=== PATIENT | female | born 1955 | race Caucasian/White ===

== ENCOUNTER 2016-09-20 09:17 | Inpatient (IN) ==
[2016-09-20] MEDS ORDERED: SODIUM CHLORIDE 0.9% 1,000 ML IV STA (09:45)
[2016-09-20] MEDS ORDERED: LEVOFLOXACIN INJ 500 MG in PREMIX 1 EACH IV STA (09:47)
[2016-09-20] MEDS ORDERED: HYDROmorphone 2 MG/1 ML VIAL IV STA (09:47)
[2016-09-20] MEDS ORDERED: HYDROmorphone 2 MG/1 ML VIAL ONE (09:50)
[2016-09-20] MEDS ORDERED: LEVOFLOXACIN INJ 150 ML IV ONE (09:51)
[2016-09-20] MEDS ORDERED: ONDANSETRON ODT 4 MG TABLET PO ONE (09:51)
[2016-09-20 09:53] LABS: Basophils % 0.2 % (0.0-0.8); Hematocrit 36.5 VOL% (35.7-47.0); Hemoglobin 12.1 GM/DL (12.0-16.0); Immature Granulocytes % 0.8 %; Immature Granulocytes Absolute 0.08 #; Lymphocytes # 0.8 10*3/uL (1.4-4.0); Mean Corpuscular HGB Conc 33.2 GM/DL (32-36); Mean Corpuscular Hemoglobin 30 PG (27-34); Mean Corpuscular Volume 91.3 FL (87-102); Mean Platelet Volume 11.2 FL (9.6-12.0); Monocytes # 0.8 10*3/uL (0.11-0.8); Monocytes % 8.2 % (1.7-12.7); Neutrophils # 8.2 10*3/uL (1.4-7.4); Neutrophils % 82.8 % (38.7-73.9); Platelet Count 143 T/CUMM (130-400); Red Cell Distribution Width 13.5 % (9.3-17.3); White Blood Count 9.9 T/CUMM (4-12)
[2016-09-20] MEDS ORDERED: LEVOFLOXACIN INJ 750 MG in PREMIX 1 EACH IV STA (09:59)
[2016-09-20] MEDS: ONDANSETRON ODT 4 MG TABLET PO PRN ×2 (10:03→17:23)
[2016-09-20 10:06] LABS: Apearance,Urine CLOUDY (Clear); Bacteria,Urine Moderate /HPF (Few); Bilirubin,Urine Negative (Negative); Blood, Urine Moderate mg/dL (Negative); Glucose,Urine (UA) Negative (Negative); Ketones,Urine Negative (Negative); Mucus,Urine Occasional /LPF (Occasional); Nitrite,Urine Positive (Negative); Protein,Urine 100 MG/DL; RBC,Urine 42 /HPF (0-4); Squamous Epithelial Cell,Urine Occasional /HPF (0-10); Urine Specific Gravity 1.021 (1.001-1.035); Urine Urobilinogen < 2.0 EU/DL (0.2-1.0); WBC,Urine 668 /HPF (0-6)
[2016-09-20 10:08] LABS: Urine Color Dark Yellow (Yellow)
[2016-09-20 10:17] LABS: Band Neutrophils 9 % (0-10); Hypochromasia 1+; Lymphocytes 10 % (20-55); Microcytosis Slight; Segmented Neutrophils 74 % (50-85); Total Cells Counted 100
[2016-09-20 10:18] LABS: Platelet Estimate Adequate
[2016-09-20 10:21] LABS: Albumin 3.2 G/DL (3.4-5.0); Bilirubin,Total 0.7 MG/DL (0.2-1.0); Calcium 8.5 MG/DL (8.5-10.1); Osmolality,Calculated 283.8 MOS/KG (273-304); Potassium 3.9 MMOL/L (3.5-5.1); Total Protein 6.5 G/DL (6.4-8.3)
--- NOTE | 2016-09-20 12:03 | CT Report ---
History: Urinary tract infection, lower abdominal pain and back pain. Nausea and vomiting. Dysuria Date: 09/20/2016 Study: CT abdomen and pelvis without contrast Comparison exam: No previous Technique: Spiral CT sections were obtained from the lung bases to the pubic symphysis without contrast. The CT exam was performed using one or more of the following dose reduction techniques: Automated exposure control, adjustment of the mA and/or kV according to patient size, or use of iterative reconstruction technique. CT abdomen: The partially visualized lung bases are clear except for some minor dependent atelectasis. There is no gross pleural or pericardial effusion. There is no evidence of pneumoperitoneum. There is mild diffuse fatty infiltration of liver. The gallbladder is surgically absent. There is a small hiatal hernia. The liver, pancreas, bile ducts, and adrenal glands are unremarkable in CT appearance. The spleen is unremarkable except for a small nonspecific 11 mm low-density superiorly which may represent a hepatic cyst. There is mild perinephric and proximal periureteral fat stranding on the right. There is no hydronephrosis or radiopaque ureteral stone. There is no gross renal mass on this noncontrast study. There are at least 2 calcifications measuring 2 mm and less in the right kidney which could represent nonobstructing renal stones. There is a 15 mm nonobstructing renal stone in a lower pole of left kidney. There is no aneurysm of the moderately calcified abdominal aorta. There is no evidence of bowel obstruction. The appendix is normal. Multiple small areas of incisional hernia formation are noted superior to the umbilicus, scattered over 18 cm. These contain fat without any entrapped bowel. There is no lymphadenopathy. There is prominent degenerative disc disease at L4-L5. CT pelvis: There is no pelvic mass or abnormal pelvic fluid collection. The uterus is surgically absent. Impression: Perinephric and proximal periureteral fat stranding on the right is present. This could be a secondary sign of an upper urinary tract infection. There is no hydronephrosis or radiopaque ureteral stone. There are nonobstructing renal stones bilaterally. Other nonacute findings discussed above PROCEDURE INTERPRETED AT [facility] DEPARTMENT OF RADIOLOGY Final Report Signed by: Dr. Belkis Hastings
--- NOTE | 2016-09-20 12:29 | Emergency Department Note ---
Jax Moore Brittany, am scribing for, and in the presence of, Jama Bellamy MD 09:47. Josesito Moore Doug C, MD, personally performed the services described in this documentation, ascribed by Chloe Camara in my presence, and it is both accurate and complete . Arrival - Arrival Chief Complaint: Urogenital - Female Stated Complaint: Kidney Infection ED Nursing Triage Note: C/o urinary frequency and pain with urination-onset 4 days ago. +chills and body aches. Mode of Arrival: Wheelchair Limitations: No Limitations Source: Patient, RN Notes Reviewed - History of Present Illness HPI Narrative: Patient is a 60-year-old white female presents emergency room complaining of lower abdominal pain and back pain for the last 3 days. Patient has had a subjective fever with chills since this started and she is also had nausea, vomiting and episodes of sweating. Patient states she is having dysuria and frequency and noticed her urine has been quite dark. She does have a past medical history of kidney stones. She denies any back injury or radicular symptoms. Onset (ago): day(s) (4) Consistency: constant Severity: moderate Severity scale (1-10): 6 Quality: aching, burning Date of Last Menstrual Period: hysterectomy Allergies/Adverse Reactions: Allergies Allergy/AdvReac Type Severity Reaction Status Date / Time Penicillins AdvReac Unknown/Unable Verified 09/20/16 09:24 to obtain Home Medications: Home Medications Medication Instructions Recorded Confirmed Type Citalopram [CeleXA] 40 mg PO DAILY 09/20/16 09/20/16 History Hydrocodone/Acetaminophen 1 each PO Q6H PRN 09/20/16 09/20/16 History [Hydrocodon-Acetaminophn 10-325] LORazepam TAB [Ativan Tab] 1 mg PO BID PRN 09/20/16 09/20/16 History Losartan Potassium 50 mg PO DAILY 09/20/16 09/20/16 History Meloxicam 15 mg PO DAILY 09/20/16 09/20/16 History Metoprolol Succinate 50 mg PO DAILY 09/20/16 09/20/16 History Temazepam 30 mg PO BEDTIME 09/20/16 09/20/16 History levETIRAcetam TAB [Keppra Tab] 500 mg PO BID 09/20/16 09/20/16 History Review of System - Review of System 12 point system: reviewed and no additional remarkable complaints except as stated - Review of System Constitutional: Present: as per HPI, chills, fever (subjective) Eyes: Absent: vision change Head/Ears/Nose/Throat: Absent: nasal drainage, sore throat Respiratory: Absent: respiratory distress Cardiovascular: Absent: chest pain, palpitations Gastrointestinal: Present: as per HPI, abdominal pain. Absent: nausea, vomiting , diarrhea, constipation Genitourinary female: Present: as per HPI, dysuria, frequency, other (dark colored urine) Musculoskeletal: Present: as per HPI, back pain. Absent: arm pain, leg pain, neck pain Skin: Absent: rash Neurological: Absent: headache, confusion Psychiatric: Absent: anxiety, depression Hematological/Lymphatic: Absent: easy bleeding, easy bruising Medical,Surgical,& Family Hx - Medical History Cardio: History of: Hypertension, [place], Valvular Heart Disease Psychological: History of: Depression Neurology: History of: Seizures, TIA Gastrointestinal: History of: GI Problems - Surgical History Abdominal Surgeries: Surgical HX of: Abdominal Surgery (removal of intestinal tumor) Reproductive Surgeries: Surgical HX of;: Breast Surgery (Breast Biopsy), Hysterectomy - Family History Family History: Reports;: Family Heart Disease - Social History Smoking Status: Never smoker Frequency of Alcohol Use: None Type of Drug Use: None Exam Vital Signs: Vital Signs Temperature 98.9 F 09/20/16 09:32 Pulse Rate 78 09/20/16 11:15 Respiratory Rate 18 09/20/16 11:15 Blood Pressure 127/64 09/20/16 11:15 O2 Sat by Pulse Oximetry 93 L 09/20/16 11:15 - General General appearance: alert, in distress (appears uncomfortable secondary to pain) - Head Head exam: Present: normocephalic - Eye Eye exam: Present: PERRL, EOMI - ENT ENT exam: Present: mucous membranes dry. Absent: normal oropharynx, mucous membranes moist - Neck Neck exam: Present: normal inspection, full ROM - Chest Chest inspection: Present: normal inspection - Respiratory Respiratory exam: Present: normal lung sounds bilaterally - Cardiovascular Cardiovascular exam: Present: normal rhythm, tachycardia, murmur (2/6 systolic ejection murmur at the left base). Absent: regular rate, normal heart sounds - Abdominal Exam Abdominal exam: Present: soft, tenderness (diffuse abdominal tenderness to palpation), normal bowel sounds - Extremities Exam Extremities exam: Present: normal inspection - Back Exam Back exam: Present: normal inspection - Neurological Exam Neurological exam: Present: alert, oriented X3, CN II-XII intact. Absent: motor sensory deficit - Psychiatric Psychiatric exam: Present: normal affect - Skin Skin exam: Present: warm, dry Course Course Narrative: Patient's clinical presentation, laboratory and radiographic findings were discussed with Tyra who is covering the hospitalist service. Patient be seen in the emergency room and evaluated for admission. Results - Labs CBC & BMP: 09/20/16 09:45 09/20/16 09:45 Lab Results: I have reviewed the patients labs Labs: Laboratory Tests 09/20/16 09:45 WBC 9.9 RBC 4.00 Hgb 12.1 Hct 36.5 MCV 91.3 MCH 30 MCHC 33.2 RDW 13.5 Plt Count 143 MPV 11.2 Neut % (Auto) 82.8 H Lymph % (Auto) 8.0 L [place] % (Auto) 8.2 Eos % (Auto) 0.0 Baso % (Auto) 0.2 Neut # (Auto) 8.2 H Lymph # (Auto) 0.8 L [place] # (Auto) 0.8 Eos # (Auto) 0.0 Baso # (Auto) 0.0 Immature Gran % 0.8 Nucleated RBC % 0.0 Immature Gran # 0.08 Nucleated RBCs # 0.00 Laboratory Tests 09/20/16 09:45 Urine Color Dark yellow Urine Appearance Cloudy Urine pH 5.0 Ur Specific [place] 1.021 Urine Protein 100 Urine Glucose (UA) Negative Urine Ketones Negative Urine Blood Moderate Urine Nitrate Positive H Urine Bilirubin Negative Urine Urobilinogen < 2.0 H Urine Leukocytes Large H Urine RBC 42 Urine WBC 668 Urine WBC Clumps Moderate Ur Squamous Epith Cells Occasional Urine Bacteria Moderate Urine Mucus Occasional Ur Culture Indicated? Ordered separately Laboratory Tests 09/20/16 09:45 Total Counted 100 Segmented Neutrophils 74 Band Neutrophils 9 Lymphocytes 10 L Monocytes 7 Platelet Estimate Adequate Hypochromasia 1+ Microcytosis Slight Laboratory Tests 09/20/16 09:45 Sodium 137 Potassium 3.9 Chloride 103 Carbon Dioxide 21 Anion Gap 16.9 H BUN 27 H Creatinine 2.00 H GFR Calculation 33 BUN/Creatinine Ratio 13.00 Glucose 211 H Calculated Osmolality 283.8 Calcium 8.5 Total Bilirubin 0.70 AST 15 ALT 19 Alkaline Phosphatase 79 Total Protein 6.5 Albumin 3.2 L Globulin 3.3 Albumin/Globulin Ratio 0.9 L - Diagnostic Findings Procedure: CT Abdomen and Pelvis: report reviewed by me (Perinephric and proximal periureteral fat stranding on the right is present. This could be a secondary sign of an upper urinary tract infection. There is no hydronephrosis or radiopaque ureteral stone. There are nonobstructing renal stones bilaterally. ) Disposition Clinical Impression: Pyelonephritis, acute Case discussed with: patient, patient's family Disposition: Still a Patient Condition: Stable Time of Disposition: 12:28
--- NOTE | 2016-09-20 12:51 | Hospitalist History & Physical ---
Assessment and Plan - Time spent with patient Time spent with patient: Greater than 30 minutes (1) Pyelonephritis, acute Status: Acute Assessment and plan: Patient presents with acute right pyelonephritis. She has been cultured appropriately and will begin empiric IV antibiotics while awaiting cultures ID and sensitivity. Will provide IV fluids, IV analgesics and antiemetics. Further workup will be performed based on patient's clinical response and results of the pending database. Current Visit: Yes (2) Seizures Status: Chronic Assessment and plan: Patient has a history of seizures which have been controlled on Keppra which we will continue at this time. Current Visit: Yes (3) Cerebrovascular accident Status: Chronic Assessment and plan: Patient has a history of remote CVA with no residual. Current Visit: Yes (4) Congestive heart failure Status: Chronic Assessment and plan: Patient gives a history of congestive heart failure. LV function is unknown at this time. She appears to be well compensated at this time will continue her current medical regimen Current Visit: Yes (5) Hypertension Status: Chronic Assessment and plan: Patient has history of chronic essential hypertension. Blood pressures currently stable. We will continue her current medical regimen. Current Visit: Yes Qualifiers: Hypertension type: essential hypertension Qualified Code(s): I10 - Essential (primary) hypertension (6) Renal failure Status: Acute Assessment and plan: Patient has a creatinine of 2.0. I am unclear as to the chronicity of this. Will hydrate overnight and avoiding nephrotoxic agents. We will follow-up renal function and electrolytes in the a.m. Current Visit: Yes History of Present Illness Chief complaint: Fever, nausea, vomiting, right back pain History of present illness: Ms. Rodriguez is a 60 year old white female who noted that early in the week she had dysuria. She drank lemon juice and attempt to resolve this. Later in the week she began having generalized body aches right flank pain with associated nausea and vomiting as well as nonbloody watery diarrhea. She began having fevers and sweats. states that yesterday she was in the bed all day had little oral intake. Today they brought her to the emergency room where she was noted to have evidence of pyelonephritis clinically and radiographically. She denies any chest pain, shortness of breath, cough, sputum production, melena , hematochezia, hematemesis, focal motor weakness or paresthesias, recent seizure activity. Her primary care provider is Dr. Chavo Marquez. Home Medications Medication Instructions Recorded Confirmed Type Citalopram [CeleXA] 40 mg PO DAILY 09/20/16 09/20/16 History Hydrocodone/Acetaminophen 1 each PO Q6H PRN 09/20/16 09/20/16 History [Hydrocodon-Acetaminophn 10-325] LORazepam TAB [Ativan Tab] 1 mg PO BID PRN 09/20/16 09/20/16 History Losartan Potassium 50 mg PO DAILY 09/20/16 09/20/16 History Meloxicam 15 mg PO DAILY 09/20/16 09/20/16 History Metoprolol Succinate 50 mg PO DAILY 09/20/16 09/20/16 History Temazepam 30 mg PO BEDTIME 09/20/16 09/20/16 History levETIRAcetam TAB [Keppra Tab] 500 mg PO BID 09/20/16 09/20/16 History Allergies Allergy/AdvReac Type Severity Reaction Status Date / Time Penicillins AdvReac Unknown/Unable Verified 09/20/16 09:24 to obtain Medical,Surgical,& Family Hx - Medical History Cardio: History of: Hypertension, [place], Valvular Heart Disease Psychological: History of: Depression Neurology: History of: Seizures, TIA Gastrointestinal: History of: GI Problems - Surgical History Abdominal Surgeries: Surgical HX of: Abdominal Surgery (removal of intestinal tumor) Reproductive Surgeries: Surgical HX of;: Breast Surgery (Breast Biopsy), Hysterectomy - Family History Family History: Reports;: Family Heart Disease - Social History Smoking Status: Never smoker Frequency of Alcohol Use: None Type of Drug Use: None Marital Status: Lives With:: Spouse Functional capacity: independent ambulation 12 point system: reviewed and no additional remarkable complaints except as stated Exam - Constitutional Vitals: Period Temp Pulse Resp BP Sys/Nj Pulse Ox Last 24 Hr 98.9 F-98.9 F 70-92 16-20 108-155/58-83 92-97 General appearance: mild distress - Head Head exam: Present: normocephalic, atraumatic - Eye Eye exam: Present: EOMI. Absent: scleral icterus Pupils: Present: DOUG - ENT ENT exam: Present: normal oropharynx - Neck Neck exam: Absent: lymphadenopathy, meningismus, tenderness, thyromegaly - Respiratory Respiratory exam: Present: clear to auscultation bilaterally. Absent: rales, rhonchi, wheezes - Cardiovascular Cardiovascular exam: Present: regular rate and rhythm. Absent: gallop, JVD, systolic murmur, tachycardia - GI/Abdominal GI/Abdominal exam: Present: normal bowel sounds, soft. Absent: distended, mass , tenderness, rebound - Extremities Exam Extremities exam: Absent: calf tenderness, edema - Back Exam Back exam: Present: CVA tenderness (R). Absent: vertebral tenderness - Neurological Exam Neurological exam: Present: alert, oriented X3, CN II-XII intact. Absent: motor sensory deficit - Psychiatric Psychiatric exam: Present: normal affect, normal mood, anxious. Absent: agitated - Skin Skin exam: Present: warm, diaphoretic. Absent: petechiae, rash Results - Labs CBC & BMP: 09/20/16 09:45 09/20/16 09:45 Lab Results: I have reviewed the past 24 hour labs - Diagnostic Findings Procedure: CT Abdomen and Pelvis: report reviewed by me
[2016-09-20] MEDS ORDERED: SODIUM CHLORIDE 0.9% 1,000 ML IV ONE (12:55)
[2016-09-20] MEDS ORDERED: DEXTROSE 50% 25 GM/50 ML VIAL IV PRN (13:05)
[2016-09-20] MEDS ORDERED: GLUCAGON 1 MG VIAL IM PRN (13:05)
[2016-09-20] MEDS ORDERED: ONDANSETRON 4 MG/2 ML VIAL IV PRN (13:29)
[2016-09-20] MEDS ORDERED: ENOXAPARIN 30 MG/0.3 ML SYRINGE SUBCUT SCH (13:29)
[2016-09-20] MEDS: ENOXAPARIN 40 MG/0.4 ML SYRINGE SUBCUT SCH (14:17)
[2016-09-20] MEDS: MEROPENEM 1,000 MG in SODIUM CHLORIDE 0.9% 100 ML IV SCH ×2 (14:17→15:27)
[2016-09-20] MEDS: MORPHINE 2 MG/1 ML SYRINGE IV PRN ×2 (14:17→22:48)
[2016-09-20] MEDS: SODIUM CHLORIDE 0.9% 1,000 ML IV SCH ×3 (15:28→23:48)
[2016-09-20] MEDS: ACETAMINOPHEN 325 MG TABLET PO PRN ×2 (15:34→22:52)
[2016-09-20] MEDS: LORazepam 1 MG TABLET PO PRN (15:34)
[2016-09-20] MEDS: INSULIN LISPRO 100 UNIT/ML SUBCUT SCH ×2 (17:06→20:11)
[2016-09-20] MEDS: levETIRAcetam 500 MG TABLET PO SCH (20:11)
[2016-09-20] MEDS: PANTOPRAZOLE 40 MG TABLET PO SCH (21:20)
[2016-09-20] MEDS ORDERED: SODIUM CHLORIDE 0.9% 1,000 ML IV SCH (23:45)
[2016-09-21] MEDS: MEROPENEM 1,000 MG in SODIUM CHLORIDE 0.9% 100 ML IV SCH ×2 (01:18→13:24)
[2016-09-21] MEDS: ACETAMINOPHEN 325 MG TABLET PO PRN ×2 (05:28→19:08)
[2016-09-21 07:16] LABS: Basophils % 0.2 % (0.0-0.8); Immature Granulocytes % 0.7 %; Immature Granulocytes Absolute 0.04 #; Lymphocytes # 0.6 10*3/uL (1.4-4.0); Lymphocytes % 10.1 % (21.3-54.2); Mean Corpuscular HGB Conc 32.3 GM/DL (32-36); Mean Corpuscular Hemoglobin 30 PG (27-34); Mean Corpuscular Volume 93.1 FL (87-102); Mean Platelet Volume 11.7 FL (9.6-12.0); Monocytes # 0.5 10*3/uL (0.11-0.8); Monocytes % 9.6 % (1.7-12.7); Neutrophils # 4.5 10*3/uL (1.4-7.4); Neutrophils % 79.4 % (38.7-73.9); Platelet Count 122 T/CUMM (130-400); Red Blood Count 3.33 MC/CUMM (3.8-5.5); Red Cell Distribution Width 13.9 % (9.3-17.3); White Blood Count 5.6 T/CUMM (4-12)
[2016-09-21 07:36] LABS: Hypochromasia Slight; Platelet Estimate Adequate
[2016-09-21 07:42] LABS: Calcium 7.7 MG/DL (8.5-10.1); Osmolality,Calculated 278.8 MOS/KG (273-304); Potassium 3.8 MMOL/L (3.5-5.1)
--- NOTE | 2016-09-21 08:06 | Hospitalist Progress Note ---
Assessment and Plan - Time spent with patient Time spent with patient: Less than 30 minutes (1) Pyelonephritis, acute Status: Acute Assessment and plan: Patient presents with acute right pyelonephritis. She has been cultured appropriately and will begin empiric IV antibiotics while awaiting cultures ID and sensitivity. Will provide IV fluids, IV analgesics and antiemetics. Further workup will be performed based on patient's clinical response and results of the pending database. 09/21/16: Continuing IV Merrem for her acute right pyelonephritis. Blood cultures are positive for gram-negative rods. Will await further ID and sensitivities before making any further adjustments. Will otherwise continue IV fluids with IV analgesics and antiemetics as needed. Current Visit: Yes (2) Seizures Status: Chronic Assessment and plan: Patient has a history of seizures which have been controlled on Keppra which we will continue at this time. Current Visit: Yes (3) Cerebrovascular accident Status: Chronic Assessment and plan: Patient has a history of remote CVA with no residual. Current Visit: Yes (4) Congestive heart failure Status: Chronic Assessment and plan: Patient gives a history of congestive heart failure. LV function is unknown at this time. She appears to be well compensated at this time will continue her current medical regimen Current Visit: Yes (5) Hypertension Status: Chronic Assessment and plan: Patient has history of chronic essential hypertension. Blood pressures currently stable. We will continue her current medical regimen. Current Visit: Yes Qualifiers: Hypertension type: essential hypertension Qualified Code(s): I10 - Essential (primary) hypertension (6) Renal failure Status: Acute Assessment and plan: Patient has a creatinine of 2.0. I am unclear as to the chronicity of this. Will hydrate overnight and avoiding nephrotoxic agents. We will follow-up renal function and electrolytes in the a.m. 09/21/16: Renal function is improved with a creatinine of 1.4 this morning. We will continue hydration, avoiding nephrotoxic agents or insults and treatment of her underlying pyelonephritis. Current Visit: Yes Hospitalist: Subjective Interval history: Ms. Rodriguez is unable to get out of bed and is having difficulty emptying her bladder completely and request a Grimes catheter. She has some mild nausea but no vomiting. She has continued back discomfort but no chest pain or shortness of breath. Exam - Constitutional Vitals: Period Temp Pulse Resp BP Sys/Nj Pulse Ox Last 24 Hr 97.4 F-102.1 F 70-92 16-24 108-155/54-83 91-98 General appearance: no acute distress - Head Head exam: Present: normocephalic, atraumatic - Eye Eye exam: Present: EOMI Pupils: Present: DOUG - ENT ENT exam: Present: normal exam - Neck Neck exam: Present: normal inspection - Respiratory Respiratory exam: Present: clear to auscultation bilaterally. Absent: rales, rhonchi, wheezes - Cardiovascular Cardiovascular exam: Present: regular rate and rhythm. Absent: systolic murmur , tachycardia - GI/Abdominal GI/Abdominal exam: Present: normal bowel sounds, soft. Absent: mass, tenderness , rebound - Extremities Exam Extremities exam: Absent: calf tenderness, edema - Back Exam Back exam: Present: normal inspection - Neurological Exam Neurological exam: Present: alert, oriented X3, CN II-XII intact. Absent: motor sensory deficit - Psychiatric Psychiatric exam: Present: normal affect, normal mood. Absent: agitated, anxious - Skin Skin exam: Present: warm, dry. Absent: erythema, rash Results - Labs CBC & BMP: 09/21/16 06:31 09/21/16 06:31 Lab Results: I have reviewed the past 24 hour labs Labs: Blood cultures are positive 2 for gram-negative rods - Diagnostic Findings Procedure: Chest x-ray: image reviewed by me
[2016-09-21] MEDS: INSULIN LISPRO 100 UNIT/ML SUBCUT SCH ×4 (09:12→20:59)
[2016-09-21] MEDS: CITALOPRAM 40 MG TABLET PO SCH (09:17)
[2016-09-21] MEDS: levETIRAcetam 500 MG TABLET PO SCH ×2 (09:17→20:17)
[2016-09-21] MEDS: LOSARTAN 50 MG TABLET PO SCH (09:18)
[2016-09-21] MEDS: METOPROLOL SUCCINATE XL 50 MG TABLET PO SCH (09:18)
--- NOTE | 2016-09-21 09:25 | XRay Report ---
Portable chest Date: 09/20/2016 Clinical history: Generalized abdominal pain, UTI, fever Comparison: None Technique: Portable AP sitting chest Findings: The heart is normal in size. Motion artifact with minimal atelectasis. Unremarkable mediastinum with degenerative changes. Prior anterior cervical fusion. Impression: Motion artifact with minimal atelectasis. PROCEDURE INTERPRETED AT [facility] DEPARTMENT OF RADIOLOGY Final Report Signed by: Dr. Brooklyn Del Real
[2016-09-21 11:17] LABS: Apearance,Urine Slightly Hazy (Clear); Bacteria,Urine Occasional /HPF (Few); Bilirubin,Urine Negative (Negative); Blood, Urine Small mg/dL (Negative); Glucose,Urine (UA) Negative (Negative); Ketones,Urine 5 mg/dL (Negative); Mucus,Urine Occasional /LPF (Occasional); Nitrite,Urine Negative (Negative); Protein,Urine 100 MG/DL; RBC,Urine 2 /HPF (0-4); Squamous Epithelial Cell,Urine Occasional /HPF (0-10); Urine Color Yellow (Yellow); Urine Specific Gravity 1.015 (1.001-1.035); Urine Urobilinogen < 2.0 EU/DL (0.2-1.0); WBC,Urine 71 /HPF (0-6)
[2016-09-21] MEDS: SODIUM CHLORIDE 0.9% 1,000 ML IV SCH ×2 (11:28→13:23)
[2016-09-21] MEDS: ENOXAPARIN 40 MG/0.4 ML SYRINGE SUBCUT SCH (13:24)
[2016-09-21] MEDS: PANTOPRAZOLE 40 MG TABLET PO SCH (20:17)
[2016-09-22] MEDS: SODIUM CHLORIDE 0.9% 1,000 ML IV SCH ×4 (00:17→14:21)
[2016-09-22] MEDS: MEROPENEM 1,000 MG in SODIUM CHLORIDE 0.9% 100 ML IV SCH ×2 (01:41→14:21)
[2016-09-22] MEDS: ACETAMINOPHEN 325 MG TABLET PO PRN ×3 (02:03→17:15)
[2016-09-22 06:20] LABS: Basophils % 0.3 % (0.0-0.8); Hematocrit 31.1 VOL% (35.7-47.0); Immature Granulocytes % 2.2 %; Immature Granulocytes Absolute 0.07 #; Lymphocytes # 0.7 10*3/uL (1.4-4.0); Lymphocytes % 21.3 % (21.3-54.2); Mean Corpuscular HGB Conc 32.2 GM/DL (32-36); Mean Corpuscular Hemoglobin 29 PG (27-34); Mean Corpuscular Volume 91.2 FL (87-102); Mean Platelet Volume 11.8 FL (9.6-12.0); Monocytes # 0.5 10*3/uL (0.11-0.8); Monocytes % 14.9 % (1.7-12.7); Neutrophils # 1.9 10*3/uL (1.4-7.4); Neutrophils % 60.3 % (38.7-73.9); Platelet Count 118 T/CUMM (130-400); Red Blood Count 3.41 MC/CUMM (3.8-5.5); White Blood Count 3.2 T/CUMM (4-12)
[2016-09-22 06:52] LABS: Atypical Lymphocytes Few; Band Neutrophils 4 % (0-10); Hypochromasia 1+; Lymphocytes 16 % (20-55); Platelet Estimate Decreased; Segmented Neutrophils 72 % (50-85); Total Cells Counted 100
[2016-09-22 06:55] LABS: Calcium 7.6 MG/DL (8.5-10.1); Osmolality,Calculated 283.3 MOS/KG (273-304); Potassium 3.9 MMOL/L (3.5-5.1)
[2016-09-22] MEDS: INSULIN LISPRO 100 UNIT/ML SUBCUT SCH ×4 (08:21→21:13)
[2016-09-22] MEDS: METOPROLOL SUCCINATE XL 50 MG TABLET PO SCH (09:09)
[2016-09-22] MEDS: levETIRAcetam 500 MG TABLET PO SCH ×2 (09:09→20:09)
[2016-09-22] MEDS: LOSARTAN 50 MG TABLET PO SCH (09:09)
[2016-09-22] MEDS: CITALOPRAM 40 MG TABLET PO SCH (09:09)
[2016-09-22] MEDS: ENOXAPARIN 40 MG/0.4 ML SYRINGE SUBCUT SCH (14:21)
--- NOTE | 2016-09-22 17:02 | Hospitalist Progress Note ---
Assessment and Plan (1) Pyelonephritis, acute Status: Acute Assessment and plan: E. coli in urine. 2 out of 2 blood cultures positive for gram-negative rods sensitivities pending. Continue Merrem according to sensitivities. Current Visit: Yes (2) Hypertension Status: Chronic Current Visit: Yes Qualifiers: Hypertension type: essential hypertension Qualified Code(s): I10 - Essential (primary) hypertension (3) Seizures Status: Chronic Assessment and plan: Stable on Keppra Current Visit: Yes (4) Cerebrovascular accident Status: Chronic Assessment and plan: No evidence of acute deficit. Patient with a history of previous CVA. Current Visit: Yes Hospitalist: Subjective Interval history: Patient seen and examined. No acute events overnight. Case discussed with nursing staff. Labs reviewed. Exam - Constitutional Vitals: Period Temp Pulse Resp BP Sys/Nj Pulse Ox Last 24 Hr 96.7 F-99.4 F 61-77 18-22 95-140/48-84 95-98 Exam: Constitutional System: Mild distress. No tremulousness. Head: Normocephalic, atraumatic. Ears, Nose and Throat System: No pain or tenderness. No epistaxis or discharge Eyes System: Pupils equal, round, and reactive. Extraocular muscles intact. Neck: Supple, without adenopathy, No jugular venous distention. Respiratory System: Chest clear to auscultation. Cardiovascular System: Heart with regular rate and rhythm. No murmur. GI System: Abdomen soft, nontender. Normo active bowel sounds present. Bilateral flank pain improved Musculoskeletal System: limbs with no pedal edema. Full distal pulses. Neurological System: No discernable sensory deficit. No aphasia Psychiatric System: Conversation is rational Results - Labs CBC & BMP: 09/22/16 06:00 09/22/16 06:00 Lab Results: I have reviewed the past 24 hour labs
[2016-09-22] MEDS: PANTOPRAZOLE 40 MG TABLET PO SCH (20:09)
[2016-09-23] MEDS: MEROPENEM 1,000 MG in SODIUM CHLORIDE 0.9% 100 ML IV SCH (01:42)
[2016-09-23] MEDS: ACETAMINOPHEN 325 MG TABLET PO PRN ×2 (01:43→08:55)
[2016-09-23] MEDS: CITALOPRAM 40 MG TABLET PO SCH (08:46)
[2016-09-23] MEDS: INSULIN LISPRO 100 UNIT/ML SUBCUT SCH ×2 (08:46→11:25)
[2016-09-23] MEDS: METOPROLOL SUCCINATE XL 50 MG TABLET PO SCH (08:46)
[2016-09-23] MEDS: LOSARTAN 50 MG TABLET PO SCH (08:46)
[2016-09-23] MEDS: levETIRAcetam 500 MG TABLET PO SCH (08:46)
[2016-09-23] MEDS: LORazepam 1 MG TABLET PO PRN (08:56)
[2016-09-23] MEDS ORDERED: CIPROFLOXACIN 500 MG TABLET PO SCH (10:30)
[2016-09-23] MEDS: SODIUM CHLORIDE 0.9% 1,000 ML IV SCH (10:38)
[2016-09-23 11:19] VITALS: BP 126/71
--- NOTE | 2016-09-23 11:41 | Discharge Summary ---
<Ibis Medrano - Last Filed: 09/23/16 11:37> Hospital Course - Hospital Course Hospital Course: Ms. Rodriguez is a 60-year-old female with history of CVA, seizures, and hypertension admitted by the hospitalist service on 09/20/2016 with acute right pyelonephritis with bacteremia. She was treated with IV antibiotics, pain medicines and nausea medicines. She also had an acute kidney injury and this is resolved with gentle hydration. She is feeling much better this morning and is requesting to go home. She had E. coli in her urine and 2 out of 2 blood cultures positive for gram-negative rods that are sensitive to Cipro. She will be discharged home on Cipro for 10 more days with a follow-up with her primary care physician with a UA in 2 weeks. Complete discharge instructions were given to the patient with all questions answered. Patient's case was discussed with Dr. Fuller hospitalist, patient, and nursing staff. Case coordination, chart review, medicine reconciliation, and discharge paperwork all took approximately 33 minutes. I evaluated this patient and completed an independent history and physical examination. I coordinated care with LAURA Swain,PARamos. I agree with the documentation that she provides above. - Time spent with patient Time with patient DS: Greater than 30 minutes Diagnosis - Discharge Diagnosis (1) Pyelonephritis, acute Status: Resolved (2) Hypertension Status: Chronic (3) Seizures Status: Chronic (4) Cerebrovascular accident Status: Chronic (5) Renal failure Status: Resolved Specialty Discharge - Follow Up or Referrals Follow up with: primary care,physician [Other] - 2 Weeks (with UA) Discharge Plan - Discharge Data Disposition: Disch To Home/Self Care Condition at Discharge: Stable Discharge Diet: advance to your usual diet Activity: resume usual activities as tolerated Driving: no restrictions Contact your physician if you experience:: fever over 101, Difficulty voiding, Nausea/Vomiting - Discharge Medications New Ciprofloxacin Tab [Cipro Tab] 500 mg PO Q12HR #20 tablet Continue Hydrocodone/Acetaminophen [Hydrocodon-Acetaminophn 10-325] 1 each PO Q6H PRN PRN Reason: Pain Temazepam 30 mg PO BEDTIME Metoprolol Succinate 50 mg PO DAILY Losartan Potassium 50 mg PO DAILY Citalopram [CeleXA] 40 mg PO DAILY levETIRAcetam TAB [Keppra Tab] 500 mg PO BID LORazepam TAB [Ativan Tab] 1 mg PO BID PRN PRN Reason: nerves Meloxicam 15 mg PO DAILY - Follow Up or Referral Follow Up: primary care,physician [Other] - 2 Weeks (with UA) - Forms/Instructions Exam - Constitutional Vitals: Period Temp Pulse Resp BP Sys/Nj Pulse Ox Last 24 Hr 97 F-100.0 F 62-67 18-19 126-164/65-93 94-99 Exam: 60-year-old female, no acute distress, alert and oriented Chest clear CV regular rate and rhythm Abdomen soft nontender Extremities no edema Discharge Results Labs on day of discharge: Labs from last 24 hours 09/23/16 09/23/16 09/22/16 11:16 07:14 19:52 POC Glucose 166 H 137 H 212 H 09/22/16 16:20 POC Glucose 182 H DS: Provider Date of admission: 09/20/16 12:28 Primary care physician: Lorne Castellanos MD Attending physician on admission: Jammie Funes Discharging clinician: SOY Mckeon Expected date of discharge: 09/23/16 <Nicol Hernandez - Last Filed: 09/23/16 16:35> Hospital Course - Time spent with patient Time with patient DS: Greater than 30 minutes (Total discharge time for this patient, including [id number] time, clinical documentation, medication reconciliation, and discharge planning was 40 minutes.) Diagnosis - Discharge Diagnosis (1) Hypertension Status: Chronic (2) Seizures Status: Chronic (3) Cerebrovascular accident Status: Chronic
[2016-09-23] MEDS ORDERED: TEMAZEPAM 15 MG CAPSULE PO SCH (21:00)
[2016-09-24] MEDS ORDERED: MELOXICAM 7.5 MG TABLET PO SCH (09:00)
== END 2016-09-23 12:37 | disposition home or self-care (01) | DRG 690 ==
LOC: N.ED 09:17 → N.EDINP 12:28 → SUATTDRO 12:28 → N.5E 12:58
PROVIDERS: ADMIT Hospitalist; ATTEND Family Medicine

== ENCOUNTER 2018-06-26 21:16 | Inpatient (IN) ==
[2018-06-26] MEDS ORDERED: ALBUTEROL/IPRATROPIUM 3 ML NEB RESP TX STA (21:50)
[2018-06-26] MEDS ORDERED: LEVOFLOXACIN INJ 750 MG in PREMIX 1 EACH IV STA (21:50)
[2018-06-26] MEDS ORDERED: ONDANSETRON 4 MG/2 ML VIAL IV STA (21:57)
[2018-06-26 22:21] LABS: Basophils % 0.2 % (0.0-0.8); Eosinophils % 0.1 % (0.00-10.9); Hematocrit 34.9 VOL% (35.7-47.0); Hemoglobin 10.9 GM/DL (12.0-16.0); Immature Granulocytes % 0.9 %; Immature Granulocytes Absolute 0.12 #; Lymphocytes # 1.7 10*3/uL (1.4-4.0); Lymphocytes % 12.8 % (21.3-54.2); Mean Corpuscular HGB Conc 31.2 GM/DL (32-36); Mean Corpuscular Hemoglobin 29 PG (27-34); Mean Corpuscular Volume 91.6 FL (87-102); Mean Platelet Volume 11.5 FL (9.6-12.0); Monocytes # 1.1 10*3/uL (0.11-0.8); Monocytes % 8.1 % (1.7-12.7); Neutrophils # 10.2 10*3/uL (1.4-7.4); Neutrophils % 77.9 % (38.7-73.9); Platelet Count 183 T/CUMM (130-400); Red Blood Count 3.81 MC/CUMM (3.8-5.5); Red Cell Distribution Width 13.7 % (9.3-17.3); White Blood Count 13.1 T/CUMM (4-12)
[2018-06-26 22:28] LABS: PT Patient Result 10.9 SECS; Partial Thromboplastin Time 28.7 SECS (0-40)
[2018-06-26 22:40] LABS: Alanine Aminotransferase 18 U/L (13-56); Albumin 2.7 G/DL (3.4-5.0); Alkaline Phosphatase 69 U/L (45-117); Aspartate Amino Transferase 7 U/L (0-37); Blood Urea Nitrogen 31 MG/DL (7-18); Calcium 8.9 MG/DL (8.5-10.1); Glucose 334 MG/DL (74-106); Osmolality,Calculated 287.2 MOS/KG (273-304); Potassium 3.9 MMOL/L (3.5-5.1); Sodium 134 MMOL/L (136-145); Total Protein 7.3 G/DL (6.4-8.3); Troponin I < 0.015 NG/ML (0.00-0.045)
[2018-06-26] MEDS ORDERED: SODIUM CHLORIDE 0.9% 1,000 ML IV STA (22:47)
[2018-06-26 22:50] LABS: Prolactin 2.3 NG/ML
[2018-06-26 23:04] LABS: Apearance,Urine CLOUDY (Clear); Bilirubin,Urine Negative (Negative); Blood, Urine Small mg/dL (Negative); Glucose,Urine (UA) >=500 mg/dL (Negative); Hyaline Casts,Urine 3 /LPF (0-3); Ketones,Urine Negative (Negative); Nitrite,Urine Negative (Negative); Protein,Urine 100 MG/DL; RBC,Urine 7 /HPF (0-4); Squamous Epithelial Cell,Urine Occasional /HPF (0-10); Urine Color Yellow (Yellow); Urine Specific Gravity 1.016 (1.001-1.035); Urine Urobilinogen < 2.0 EU/DL (0.2-1.0); WBC,Urine 180 /HPF (0-6)
[2018-06-26 23:06] LABS: Barbiturates Screen,Urine Negative (Negative); Benzodiazepines Screen,Urine Negative (Negative); Cannabinoid Screen,Urine Negative (Negative); Opiate Screen,Urine Negative (Negative); Phencyclidine Screen,Urine Negative (Negative)
[2018-06-27] MEDS ORDERED: ACETAMINOPHEN 325 MG TABLET PO PRN (00:22)
[2018-06-27] MEDS ORDERED: NICOTINE 21 MG/24 HR PATCH TRANSDERM PRN (00:22)
[2018-06-27] MEDS ORDERED: DEXTROSE 50% 25 GM/50 ML SYRINGE IV PRN (00:22)
[2018-06-27] MEDS ORDERED: GLUCAGON 1 MG VIAL IM PRN (00:22)
[2018-06-27] MEDS ORDERED: ONDANSETRON 4 MG/2 ML VIAL IV PRN (00:22)
[2018-06-27] MEDS: INSULIN REGULAR 100 UNIT/ML SUBCUT SCH ×5 (02:17→20:22)
[2018-06-27] MEDS: LEVOTHYROXINE 50 MCG TABLET PO SCH (05:22)
[2018-06-27 05:37] LABS: Basophils % 0.1 % (0.0-0.8); Eosinophils % 0.1 % (0.00-10.9); Hematocrit 31.3 VOL% (35.7-47.0); Hemoglobin 9.4 GM/DL (12.0-16.0); Immature Granulocytes % 0.6 %; Immature Granulocytes Absolute 0.06 #; Lymphocytes # 1.6 10*3/uL (1.4-4.0); Lymphocytes % 17.1 % (21.3-54.2); Mean Corpuscular Hemoglobin 28 PG (27-34); Mean Corpuscular Volume 94.3 FL (87-102); Mean Platelet Volume 12.2 FL (9.6-12.0); Monocytes # 0.8 10*3/uL (0.11-0.8); Monocytes % 8.4 % (1.7-12.7); Neutrophils % 73.7 % (38.7-73.9); Platelet Count 146 T/CUMM (130-400); Red Blood Count 3.32 MC/CUMM (3.8-5.5); Red Cell Distribution Width 13.7 % (9.3-17.3); White Blood Count 9.6 T/CUMM (4-12)
[2018-06-27 05:57] LABS: Albumin 2.2 G/DL (3.4-5.0); Bilirubin,Total 0.5 MG/DL (0.2-1.0); Calcium 8.4 MG/DL (8.5-10.1); Osmolality,Calculated 281.2 MOS/KG (273-304); Potassium 3.8 MMOL/L (3.5-5.1); Total Protein 6.2 G/DL (6.4-8.3)
[2018-06-27] MEDS: ATORVASTATIN 40 MG TABLET PO SCH (08:06)
[2018-06-27] MEDS: CITALOPRAM 40 MG TABLET PO SCH (08:06)
[2018-06-27] MEDS: MAGNESIUM OXIDE 400 MG TABLET PO SCH (08:06)
[2018-06-27] MEDS: MONTELUKAST 10 MG TABLET PO SCH (08:06)
[2018-06-27] MEDS: PANTOPRAZOLE 40 MG TABLET PO SCH (08:06)
[2018-06-27] MEDS: levETIRAcetam 500 MG TABLET PO SCH ×2 (08:09→20:21)
[2018-06-27] MEDS ORDERED: ALUM/MAG/SIMETH/LIDO VISC 1:1 30 ML BOTTLE PO ONE (09:19)
[2018-06-27] MEDS: PRAMIPEXOLE 0.25 MG TABLET PO SCH (20:21)
[2018-06-28] MEDS: diphenhydrAMINE CAP 25 MG CAPSULE PO PRN ×2 (04:42→18:02)
[2018-06-28 06:03] LABS: Basophils % 0.2 % (0.0-0.8); Calcium 8.7 MG/DL (8.5-10.1); Eosinophils # 0.1 10*3/uL (0.0-0.87); Hematocrit 32.8 VOL% (35.7-47.0); Hemoglobin 9.7 GM/DL (12.0-16.0); Immature Granulocytes Absolute 0.06 #; Lymphocytes # 1.4 10*3/uL (1.4-4.0); Lymphocytes % 22.6 % (21.3-54.2); Mean Corpuscular HGB Conc 29.6 GM/DL (32-36); Mean Corpuscular Hemoglobin 28 PG (27-34); Mean Corpuscular Volume 93.7 FL (87-102); Mean Platelet Volume 12.5 FL (9.6-12.0); Monocytes # 0.6 10*3/uL (0.11-0.8); Monocytes % 10.3 % (1.7-12.7); Neutrophils # 3.9 10*3/uL (1.4-7.4); Neutrophils % 64.9 % (38.7-73.9); Platelet Count 148 T/CUMM (130-400); Potassium 4.1 MMOL/L (3.5-5.1); Red Cell Distribution Width 13.9 % (9.3-17.3)
[2018-06-28] MEDS: LEVOTHYROXINE 50 MCG TABLET PO SCH (06:17)
[2018-06-28] MEDS ORDERED: NEOMYCIN/POLYMYXIN IRRIG SOLN 1 ML AMP BLADDERIRR ONE (06:18)
[2018-06-28] MEDS ORDERED: LIRAGLUTIDE 0.6 MG SUBCUT SCH (09:00)
[2018-06-28] MEDS: MONTELUKAST 10 MG TABLET PO SCH (09:02)
[2018-06-28] MEDS: metFORMIN 500 MG TABLET PO SCH (09:02)
[2018-06-28] MEDS: ATORVASTATIN 40 MG TABLET PO SCH (09:02)
[2018-06-28] MEDS: MAGNESIUM OXIDE 400 MG TABLET PO SCH (09:02)
[2018-06-28] MEDS: GABAPENTIN 400 MG CAPSULE PO SCH ×4 (09:02→20:57)
[2018-06-28] MEDS: INSULIN REGULAR 100 UNIT/ML SUBCUT SCH ×4 (09:03→20:57)
[2018-06-28] MEDS: METOPROLOL SUCCINATE XL 50 MG TABLET PO SCH (09:03)
[2018-06-28] MEDS: PANTOPRAZOLE 40 MG TABLET PO SCH (09:03)
[2018-06-28] MEDS: levETIRAcetam 500 MG TABLET PO SCH ×2 (09:03→20:57)
[2018-06-28] MEDS: CITALOPRAM 40 MG TABLET PO SCH (09:03)
[2018-06-28] MEDS: PRAMIPEXOLE 0.25 MG TABLET PO SCH (20:57)
[2018-06-28] MEDS ORDERED: LEVOFLOXACIN INJ 750 MG in PREMIX 1 EACH IV SCH (21:00)
[2018-06-28] MEDS ORDERED: MIRTAZAPINE 15 MG TABLET PO SCH (21:00)
[2018-06-29] MEDS: diphenhydrAMINE CAP 25 MG CAPSULE PO PRN (01:44)
[2018-06-29 06:01] LABS: Basophils % 0.2 % (0.0-0.8); Eosinophils # 0.1 10*3/uL (0.0-0.87); Eosinophils % 1.5 % (0.00-10.9); Hematocrit 33.2 VOL% (35.7-47.0); Hemoglobin 9.9 GM/DL (12.0-16.0); Immature Granulocytes % 1.7 %; Lymphocytes # 1.9 10*3/uL (1.4-4.0); Lymphocytes % 31.2 % (21.3-54.2); Mean Corpuscular HGB Conc 29.8 GM/DL (32-36); Mean Corpuscular Hemoglobin 29 PG (27-34); Mean Corpuscular Volume 96.2 FL (87-102); Mean Platelet Volume 12.2 FL (9.6-12.0); Monocytes # 0.5 10*3/uL (0.11-0.8); Monocytes % 8.8 % (1.7-12.7); Neutrophils # 3.4 10*3/uL (1.4-7.4); Neutrophils % 56.6 % (38.7-73.9); Platelet Count 178 T/CUMM (130-400); Red Blood Count 3.45 MC/CUMM (3.8-5.5); Red Cell Distribution Width 13.8 % (9.3-17.3)
[2018-06-29 06:10] LABS: Calcium 9.2 MG/DL (8.5-10.1); Osmolality,Calculated 284.5 MOS/KG (273-304)
[2018-06-29] MEDS: LEVOTHYROXINE 50 MCG TABLET PO SCH (06:12)
[2018-06-29] MEDS: MONTELUKAST 10 MG TABLET PO SCH (09:12)
[2018-06-29] MEDS: metFORMIN 500 MG TABLET PO SCH (09:12)
[2018-06-29] MEDS: PANTOPRAZOLE 40 MG TABLET PO SCH (09:12)
[2018-06-29] MEDS: METOPROLOL SUCCINATE XL 50 MG TABLET PO SCH (09:14)
[2018-06-29] MEDS: INSULIN REGULAR 100 UNIT/ML SUBCUT SCH ×2 (09:14→13:31)
[2018-06-29] MEDS: GABAPENTIN 400 MG CAPSULE PO SCH (09:14)
[2018-06-29] MEDS: ATORVASTATIN 40 MG TABLET PO SCH (09:14)
[2018-06-29] MEDS: CITALOPRAM 40 MG TABLET PO SCH (09:14)
[2018-06-29] MEDS: levETIRAcetam 500 MG TABLET PO SCH (09:14)
[2018-06-29] MEDS: MAGNESIUM OXIDE 400 MG TABLET PO SCH (09:14)
[2018-06-29 11:12] VITALS: BP 135/60
== END 2018-06-29 15:30 | disposition home health service (06) | DRG 720 ==
LOC: N.EDINP 21:16 → N.ED 21:16 → SUATTDRO 06-27 00:22 → N.CC 06-27 01:10 → SUATTDRO 06-27 07:35 → N.4E 06-28 15:32
PROVIDERS: ADMIT Internal Medicine; ATTEND Internal Medicine

== ENCOUNTER 2018-08-14 11:46 | Inpatient (IN) ==
[2018-08-14 12:37] LABS: Basophils % 0.5 % (0.0-0.8); Eosinophils # 0.1 10*3/uL (0.0-0.87); Eosinophils % 1.4 % (0.00-10.9); Hematocrit 38.3 VOL% (35.7-47.0); Hemoglobin 11.7 GM/DL (12.0-16.0); Immature Granulocytes % 0.5 %; Immature Granulocytes Absolute 0.03 #; Lymphocytes # 2.4 10*3/uL (1.4-4.0); Lymphocytes % 41.8 % (21.3-54.2); Mean Corpuscular HGB Conc 30.5 GM/DL (32-36); Mean Corpuscular Hemoglobin 29 PG (27-34); Mean Corpuscular Volume 93.4 FL (87-102); Mean Platelet Volume 11.1 FL (9.6-12.0); Monocytes # 0.5 10*3/uL (0.11-0.8); Monocytes % 7.8 % (1.7-12.7); Neutrophils # 2.8 10*3/uL (1.4-7.4); Platelet Count 310 T/CUMM (130-400); Red Cell Distribution Width 13.8 % (9.3-17.3); White Blood Count 5.8 T/CUMM (4-12)
[2018-08-14 12:52] LABS: Alanine Aminotransferase 26 U/L (13-56); Albumin 4.2 G/DL (3.4-5.0); Alkaline Phosphatase 69 U/L (45-117); Aspartate Amino Transferase 8 U/L (0-37); Bilirubin,Total < 0.39 MG/DL (0.2-1.0); Blood Urea Nitrogen 20 MG/DL (7-18); Calcium 9.2 MG/DL (8.5-10.1); Glucose 191 MG/DL (74-106); Osmolality,Calculated 286.4 MOS/KG (273-304); Potassium 4.5 MMOL/L (3.5-5.1); Sodium 140 MMOL/L (136-145); Total Protein 7.5 G/DL (6.4-8.3)
[2018-08-14] MEDS ORDERED: ENOXAPARIN 120 MG/0.8 ML SYRINGE SUBCUT STA (13:01)
[2018-08-14] MEDS ORDERED: ASPIRIN 325 MG TABLET PO STA (13:01)
[2018-08-14] MEDS ORDERED: NITROGLYCERIN SL 0.4 MG TABLET SL PRN (13:01)
[2018-08-14] MEDS ORDERED: ACETAMINOPHEN 325 MG TABLET PO PRN (16:08)
[2018-08-14] MEDS ORDERED: GLUCAGON 1 MG VIAL IM PRN (16:08)
[2018-08-14] MEDS ORDERED: DEXTROSE 50% 25 GM/50 ML VIAL IV PRN (16:08)
[2018-08-14] MEDS ORDERED: ONDANSETRON 4 MG/2 ML VIAL IV PRN (16:08)
[2018-08-14] MEDS ORDERED: ENOXAPARIN 40 MG/0.4 ML SYRINGE SUBCUT SCH (16:30)
[2018-08-14 17:39] LABS: Risk Ratio 4.31; Thyroid Stimulating Hormone 2.57 uIU/ml (0.358-3.74); VLDL CHOLESTEROL 47.8 MG/DL
[2018-08-14] MEDS: INSULIN LISPRO 100 UNIT/ML SUBCUT SCH ×3 (17:58→21:30)
[2018-08-14] MEDS: MIRTAZAPINE 30 MG TABLET PO SCH (20:42)
[2018-08-14] MEDS: levETIRAcetam 500 MG TABLET PO SCH (20:42)
[2018-08-15 02:53] LABS: Basophils % 0.5 % (0.0-0.8); Eosinophils # 0.1 10*3/uL (0.0-0.87); Eosinophils % 1.2 % (0.00-10.9); Hematocrit 34.3 VOL% (35.7-47.0); Hemoglobin 10.6 GM/DL (12.0-16.0); Immature Granulocytes % 0.6 %; Immature Granulocytes Absolute 0.04 #; Lymphocytes # 2.8 10*3/uL (1.4-4.0); Lymphocytes % 41.9 % (21.3-54.2); Mean Corpuscular HGB Conc 30.9 GM/DL (32-36); Mean Corpuscular Hemoglobin 29 PG (27-34); Mean Corpuscular Volume 93.7 FL (87-102); Mean Platelet Volume 10.9 FL (9.6-12.0); Monocytes # 0.6 10*3/uL (0.11-0.8); Monocytes % 8.5 % (1.7-12.7); Neutrophils # 3.1 10*3/uL (1.4-7.4); Neutrophils % 47.3 % (38.7-73.9); Platelet Count 263 T/CUMM (130-400); Red Blood Count 3.66 MC/CUMM (3.8-5.5); Red Cell Distribution Width 13.8 % (9.3-17.3); White Blood Count 6.6 T/CUMM (4-12)
[2018-08-15 03:11] LABS: Albumin 3.6 G/DL (3.4-5.0); Bilirubin,Total 0.4 MG/DL (0.2-1.0); Calcium 9.4 MG/DL (8.5-10.1); Osmolality,Calculated 288.3 MOS/KG (273-304); Potassium 4.1 MMOL/L (3.5-5.1); Total Protein 6.8 G/DL (6.4-8.3)
[2018-08-15] MEDS ORDERED: diphenhydrAMINE CAP 25 MG CAPSULE PO ONE (07:26)
[2018-08-15] MEDS ORDERED: DIAZEPAM 5 MG TABLET PO ONE (07:26)
[2018-08-15] MEDS ORDERED: POTASSIUM CHLORIDE RIDER 10 MEQ in PREMIX 1 EACH IV PRN (07:26)
[2018-08-15] MEDS ORDERED: MAGNESIUM SULF RIDER 2 GM in PREMIX 1 EACH IV PRN (07:26)
[2018-08-15] MEDS ORDERED: NF- (Liraglutide [Victoza 2-Pak] 1.2 MG) SUBCUT SCH (09:00)
[2018-08-15] MEDS: LOSARTAN 50 MG TABLET PO SCH (09:28)
[2018-08-15] MEDS: ATORVASTATIN 40 MG TABLET PO SCH (09:28)
[2018-08-15] MEDS: MAGNESIUM OXIDE 400 MG TABLET PO SCH (09:28)
[2018-08-15] MEDS: levETIRAcetam 500 MG TABLET PO SCH ×2 (09:28→21:31)
[2018-08-15] MEDS: PANTOPRAZOLE 40 MG TABLET PO SCH (09:29)
[2018-08-15] MEDS: METOPROLOL SUCCINATE XL 50 MG TABLET PO SCH (09:29)
[2018-08-15] MEDS: LEVOTHYROXINE 50 MCG TABLET PO SCH (09:29)
[2018-08-15] MEDS: amLODIPine 5 MG TABLET PO SCH (09:29)
[2018-08-15] MEDS: INSULIN LISPRO 100 UNIT/ML SUBCUT SCH ×3 (10:27→21:33)
[2018-08-15] MEDS: SODIUM CHLORIDE 0.9% 1,000 ML IV SCH ×2 (10:41→23:28)
[2018-08-15] MEDS ORDERED: HEPARIN/NACL 0.9% 2 UNITS/ML 1,000 ML IV ONE (11:28)
[2018-08-15] MEDS ORDERED: LIDOCAINE 1% 20 ML VIAL ONE (11:28)
[2018-08-15] MEDS ORDERED: MIDAZOLAM 2 MG/2 ML VIAL ONE (11:37)
[2018-08-15] MEDS ORDERED: HYDROmorphone 2 MG/1 ML VIAL ONE (11:37)
[2018-08-15] MEDS ORDERED: LABETALOL 20 MG/4 ML SYRINGE IV ONE ×2 (11:47→12:14)
[2018-08-15] MEDS ORDERED: BIVALIRUDIN 250 MG VIAL IV ONE ×2 (11:56→12:10)
[2018-08-15] MEDS ORDERED: TICAGRELOR 90 MG TABLET ONE (12:14)
[2018-08-15] MEDS ORDERED: DEXTROSE 50% 25 GM/50 ML VIAL IV PRN (12:20)
[2018-08-15] MEDS ORDERED: GLUCAGON 1 MG VIAL IM PRN (12:20)
[2018-08-15] MEDS ORDERED: ENOXAPARIN 40 MG/0.4 ML SYRINGE SUBCUT SCH (16:30)
[2018-08-15] MEDS: TICAGRELOR 90 MG TABLET PO SCH (21:32)
[2018-08-15] MEDS: MIRTAZAPINE 30 MG TABLET PO SCH (21:35)
[2018-08-16] MEDS: SODIUM CHLORIDE 0.9% 1,000 ML IV SCH ×2 (00:45→09:37)
[2018-08-16 04:24] LABS: Basophils % 0.3 % (0.0-0.8); Eosinophils # 0.1 10*3/uL (0.0-0.87); Eosinophils % 0.9 % (0.00-10.9); Hematocrit 33.9 VOL% (35.7-47.0); Hemoglobin 10.6 GM/DL (12.0-16.0); Immature Granulocytes % 0.4 %; Immature Granulocytes Absolute 0.03 #; Lymphocytes % 26.4 % (21.3-54.2); Mean Corpuscular HGB Conc 31.3 GM/DL (32-36); Mean Corpuscular Hemoglobin 29 PG (27-34); Mean Corpuscular Volume 92.9 FL (87-102); Mean Platelet Volume 11.1 FL (9.6-12.0); Monocytes # 0.6 10*3/uL (0.11-0.8); Monocytes % 8.1 % (1.7-12.7); Neutrophils # 4.8 10*3/uL (1.4-7.4); Neutrophils % 63.9 % (38.7-73.9); Platelet Count 247 T/CUMM (130-400); Red Blood Count 3.65 MC/CUMM (3.8-5.5); Red Cell Distribution Width 13.8 % (9.3-17.3); White Blood Count 7.5 T/CUMM (4-12)
[2018-08-16 05:01] LABS: Calcium 9.2 MG/DL (8.5-10.1); Osmolality,Calculated 285.5 MOS/KG (273-304); Potassium 3.8 MMOL/L (3.5-5.1)
[2018-08-16 05:06] LABS: Platelet Estimate Adequate; Polychromasia Slight
[2018-08-16 05:21] LABS: Troponin I < 0.015 NG/ML (0.00-0.045)
[2018-08-16 05:24] LABS: Alanine Aminotransferase 29 U/L (13-56); Albumin 3.4 G/DL (3.4-5.0); Alkaline Phosphatase 58 U/L (45-117); Aspartate Amino Transferase 20 U/L (0-37); Bilirubin,Total < 0.39 MG/DL (0.2-1.0); Blood Urea Nitrogen 26 MG/DL (7-18); Calcium 9.1 MG/DL (8.5-10.1); Glucose 198 MG/DL (74-106); Osmolality,Calculated 285.7 MOS/KG (273-304); Potassium 3.8 MMOL/L (3.5-5.1); Sodium 138 MMOL/L (136-145); Total Protein 6.5 G/DL (6.4-8.3)
[2018-08-16] MEDS ORDERED: ASPIRIN EC 81 MG TABLET PO SCH (09:00)
[2018-08-16] MEDS: INSULIN LISPRO 100 UNIT/ML SUBCUT SCH ×2 (09:36→11:25)
[2018-08-16] MEDS: LEVOTHYROXINE 50 MCG TABLET PO SCH (09:37)
[2018-08-16] MEDS: ATORVASTATIN 40 MG TABLET PO SCH (09:37)
[2018-08-16] MEDS: levETIRAcetam 500 MG TABLET PO SCH (09:38)
[2018-08-16] MEDS: TICAGRELOR 90 MG TABLET PO SCH (09:38)
[2018-08-16] MEDS: MAGNESIUM OXIDE 400 MG TABLET PO SCH (09:38)
[2018-08-16] MEDS: amLODIPine 5 MG TABLET PO SCH (09:38)
[2018-08-16] MEDS: METOPROLOL SUCCINATE XL 50 MG TABLET PO SCH (09:38)
[2018-08-16] MEDS: PANTOPRAZOLE 40 MG TABLET PO SCH (09:38)
[2018-08-16] MEDS: LOSARTAN 50 MG TABLET PO SCH (09:38)
[2018-08-16 11:54] VITALS: BP 150/74
== END 2018-08-16 15:24 | disposition home health service (06) | DRG 175 ==
LOC: N.EDINP 11:46 → N.ED 11:46 → N.TELEN 16:37 → SUATTDRO 08-15 11:31
PROVIDERS: ADMIT Internal Medicine Infectious Disease; ATTEND Internal Medicine
PROC: CLCCHCL (ICD-10-PCS; 2018-08-15 11:45)

== ENCOUNTER 2018-08-18 15:17 | Inpatient (IN) ==
[2018-08-18] MEDS ORDERED: NITROGLYCERIN SL 0.4 MG TABLET SL PRN ×2 (15:38→19:56)
[2018-08-18] MEDS ORDERED: ASPIRIN 325 MG TABLET PO STA (15:38)
[2018-08-18] MEDS ORDERED: ENOXAPARIN 100 MG/ML SYRINGE SUBCUT STA (15:38)
[2018-08-18 15:50] LABS: Basophils # 0.1 10*3/uL (0.0-0.2); Basophils % 0.4 % (0.0-0.8); Eosinophils # 0.2 10*3/uL (0.0-0.87); Eosinophils % 1.1 % (0.00-10.9); Hematocrit 36.3 VOL% (35.7-47.0); Hemoglobin 11.3 GM/DL (12.0-16.0); Immature Granulocytes % 0.5 %; Immature Granulocytes Absolute 0.07 #; Lymphocytes % 43.7 % (21.3-54.2); Mean Corpuscular HGB Conc 31.1 GM/DL (32-36); Mean Corpuscular Volume 91.9 FL (87-102); Mean Platelet Volume 10.7 FL (9.6-12.0); Monocytes % 7.7 % (1.7-12.7); Neutrophils % 46.6 % (38.7-73.9); Platelet Count 347 T/CUMM (130-400); Red Blood Count 3.95 MC/CUMM (3.8-5.5); Red Cell Distribution Width 13.5 % (9.3-17.3); White Blood Count 13.7 T/CUMM (4-12)
[2018-08-18 16:00] LABS: INR 0.9
[2018-08-18 16:18] LABS: Albumin 3.8 G/DL (3.4-5.0); Bilirubin,Total 0.4 MG/DL (0.2-1.0); Calcium 9.6 MG/DL (8.5-10.1); Osmolality,Calculated 286.5 MOS/KG (273-304); Total Protein 7.8 G/DL (6.4-8.3)
[2018-08-18] MEDS ORDERED: MAGNESIUM SULF RIDER 4 GM in PREMIX 1 EACH IV PRN (16:19)
[2018-08-18] MEDS ORDERED: ACETAMINOPHEN 325 MG TABLET PO PRN (16:19)
[2018-08-18] MEDS ORDERED: MAGNESIUM SULF RIDER 2 GM in PREMIX 1 EACH IV PRN ×2 (16:19→17:00)
[2018-08-18] MEDS ORDERED: POTASSIUM CHLORIDE 20 MEQ TABLET PO PRN (16:19)
[2018-08-18] MEDS ORDERED: DOCUSATE SODIUM 100 MG CAPSULE PO PRN (16:19)
[2018-08-18] MEDS ORDERED: ZALEPLON 5 MG CAPSULE PO PRN (16:19)
[2018-08-18] MEDS ORDERED: LACTULOSE 20 GM/30 ML UDCUP PO PRN (16:19)
[2018-08-18] MEDS ORDERED: ONDANSETRON 4 MG/2 ML VIAL IV PRN (16:19)
[2018-08-18] MEDS ORDERED: diphenhydrAMINE CAP 25 MG CAPSULE PO PRN (16:19)
[2018-08-18] MEDS ORDERED: POTASSIUM CHLORIDE RIDER 10 MEQ in PREMIX 1 EACH IV PRN (16:35)
[2018-08-18] MEDS ORDERED: diphenhydrAMINE CAP 25 MG CAPSULE PO ONE (16:35)
[2018-08-18] MEDS ORDERED: DIAZEPAM 5 MG TABLET PO ONE (17:00)
[2018-08-18] MEDS: SODIUM CHLORIDE 0.45% 1,000 ML IV SCH (17:00)
[2018-08-18] MEDS ORDERED: HEPARIN/NACL 0.9% 2 UNITS/ML 1,000 ML IV ONE (17:03)
[2018-08-18] MEDS ORDERED: LIDOCAINE 1% 20 ML VIAL ONE (17:03)
[2018-08-18] MEDS ORDERED: ALUMINUM/MAGNES/SIMETH MAX STR 30 ML UDCUP PO PRN (17:04)
[2018-08-18] MEDS: MORPHINE 4 MG/1 ML VIAL IV PRN ×2 (17:13→21:24)
[2018-08-18] MEDS ORDERED: HYDROmorphone 2 MG/1 ML VIAL ONE (18:41)
[2018-08-18] MEDS ORDERED: MIDAZOLAM 2 MG/2 ML VIAL ONE (18:41)
[2018-08-18] MEDS ORDERED: MAGNESIUM SULF RIDER 50 ML IV ONE (18:51)
[2018-08-18] MEDS ORDERED: MAGNESIUM SULF RIDER 2 GM in PREMIX 1 EACH IV ONE (18:54)
[2018-08-18] MEDS ORDERED: BIVALIRUDIN 250 MG VIAL IV ONE (19:02)
[2018-08-18] MEDS ORDERED: TIROFIBAN 5,000 MCG/100 ML PREMIX IV ONE ×2 (19:16→20:26)
[2018-08-18] MEDS: TIROFIBAN 5,000 MCG/100 ML PREMIX IV SCH ×2 (19:18→20:40)
[2018-08-18] MEDS ORDERED: TICAGRELOR 90 MG TABLET ONE (19:47)
[2018-08-18] MEDS: TICAGRELOR 90 MG TABLET PO SCH (20:50)
[2018-08-18] MEDS: MIRTAZAPINE 30 MG TABLET PO SCH (21:24)
[2018-08-18] MEDS: levETIRAcetam 500 MG TABLET PO SCH (21:24)
[2018-08-18] MEDS: GABAPENTIN 400 MG CAPSULE PO SCH (21:24)
[2018-08-18 22:23] LABS: Troponin I > 200.000 NG/ML (0.00-0.045)
[2018-08-18 22:39] LABS: CKMB % 4.2 %
[2018-08-19] MEDS: TIROFIBAN 5,000 MCG/100 ML PREMIX IV SCH (00:37)
[2018-08-19] MEDS: MORPHINE 4 MG/1 ML VIAL IV PRN ×3 (00:48→21:07)
[2018-08-19] MEDS: SODIUM CHLORIDE 0.45% 1,000 ML IV SCH ×3 (04:51→21:10)
[2018-08-19 05:42] LABS: Basophils % 0.2 % (0.0-0.8); Eosinophils % 0.1 % (0.00-10.9); Hematocrit 35.2 VOL% (35.7-47.0); Hemoglobin 10.7 GM/DL (12.0-16.0); Immature Granulocytes % 0.4 %; Immature Granulocytes Absolute 0.04 #; Lymphocytes # 2.5 10*3/uL (1.4-4.0); Mean Corpuscular HGB Conc 30.4 GM/DL (32-36); Mean Corpuscular Volume 94.4 FL (87-102); Mean Platelet Volume 10.7 FL (9.6-12.0); Monocytes % 7.2 % (1.7-12.7); Neutrophils % 69.1 % (38.7-73.9); Platelet Count 345 T/CUMM (130-400); Red Blood Count 3.73 MC/CUMM (3.8-5.5); Red Cell Distribution Width 13.8 % (9.3-17.3); White Blood Count 10.8 T/CUMM (4-12)
[2018-08-19 06:12] LABS: Calcium 9.1 MG/DL (8.5-10.1); Osmolality,Calculated 279.1 MOS/KG (273-304)
[2018-08-19] MEDS: LEVOTHYROXINE 50 MCG TABLET PO SCH (06:33)
[2018-08-19] MEDS: GEMFIBROZIL 600 MG TABLET PO SCH ×2 (06:33→16:25)
[2018-08-19 06:47] LABS: Troponin I > 200.000 NG/ML (0.00-0.045)
[2018-08-19] MEDS: GABAPENTIN 400 MG CAPSULE PO SCH ×3 (08:01→21:06)
[2018-08-19] MEDS: METOPROLOL SUCCINATE XL 50 MG TABLET PO SCH (08:01)
[2018-08-19] MEDS: LOSARTAN 50 MG TABLET PO SCH (08:01)
[2018-08-19] MEDS: levETIRAcetam 500 MG TABLET PO SCH ×2 (08:01→21:06)
[2018-08-19] MEDS: MONTELUKAST 10 MG TABLET PO SCH (08:01)
[2018-08-19] MEDS: amLODIPine 5 MG TABLET PO SCH (08:01)
[2018-08-19] MEDS: ATORVASTATIN 40 MG TABLET PO SCH (08:01)
[2018-08-19] MEDS: MAGNESIUM OXIDE 400 MG TABLET PO SCH (08:01)
[2018-08-19] MEDS: ASPIRIN CHEW 81 MG TABLET PO SCH (08:01)
[2018-08-19] MEDS: PANTOPRAZOLE 40 MG TABLET PO SCH (08:02)
[2018-08-19] MEDS: TICAGRELOR 90 MG TABLET PO SCH ×2 (08:02→21:06)
[2018-08-19] MEDS ORDERED: Liraglutide [Victoza 2-Pak] 1.2 MG SUBCUT SCH (09:00)
[2018-08-19 13:00] LABS: CKMB % 4.5 %
[2018-08-19] MEDS: CYCLOBENZAPRINE 10 MG TABLET PO PRN (16:25)
[2018-08-19] MEDS ORDERED: ERGOCALCIFEROL 50,000 UNIT CAPSULE PO SCH (17:03)
[2018-08-19] MEDS: MIRTAZAPINE 30 MG TABLET PO SCH (21:06)
[2018-08-20] MEDS: SODIUM CHLORIDE 0.45% 1,000 ML IV SCH ×3 (00:24→17:34)
[2018-08-20] MEDS: LEVOTHYROXINE 50 MCG TABLET PO SCH (07:13)
[2018-08-20] MEDS: MAGNESIUM OXIDE 400 MG TABLET PO SCH (08:50)
[2018-08-20] MEDS: ASPIRIN CHEW 81 MG TABLET PO SCH (08:50)
[2018-08-20] MEDS: levETIRAcetam 500 MG TABLET PO SCH ×2 (08:50→21:27)
[2018-08-20] MEDS: METOPROLOL SUCCINATE XL 50 MG TABLET PO SCH (08:50)
[2018-08-20] MEDS: MONTELUKAST 10 MG TABLET PO SCH (08:50)
[2018-08-20] MEDS: amLODIPine 5 MG TABLET PO SCH (08:51)
[2018-08-20] MEDS: PANTOPRAZOLE 40 MG TABLET PO SCH (08:51)
[2018-08-20] MEDS: ATORVASTATIN 40 MG TABLET PO SCH (08:51)
[2018-08-20] MEDS: TICAGRELOR 90 MG TABLET PO SCH ×2 (08:51→21:27)
[2018-08-20] MEDS: LOSARTAN 50 MG TABLET PO SCH (08:51)
[2018-08-20] MEDS: GABAPENTIN 400 MG CAPSULE PO SCH ×3 (08:51→21:27)
[2018-08-20] MEDS: GEMFIBROZIL 600 MG TABLET PO SCH ×2 (08:58→17:34)
[2018-08-20] MEDS ORDERED: ALBUTEROL/IPRATROPIUM 3 ML NEB RESP TX PRN (09:22)
[2018-08-20] MEDS: CYCLOBENZAPRINE 10 MG TABLET PO PRN (19:21)
[2018-08-20] MEDS: MIRTAZAPINE 30 MG TABLET PO SCH (21:28)
[2018-08-21] MEDS ORDERED: levETIRAcetam 500 MG TABLET PO ONE (03:06)
[2018-08-21 04:52] VITALS: BP 106/64
[2018-08-21] MEDS ORDERED: ATROPINE 1 MG/10 ML SYRINGE IV ONE (05:09)
[2018-08-21] MEDS ORDERED: ATROPINE 1 MG/10 ML SYRINGE ONE (05:10)
[2018-08-21] MEDS ORDERED: EPINEPHrine 1 MG/10 ML SYRINGE IV ONE ×2 (05:23→05:35)
[2018-08-21] MEDS ORDERED: EPINEPHrine 1 MG/10 ML SYRINGE ONE (05:23)
[2018-08-21] MEDS ORDERED: levETIRAcetam 500 MG TABLET PO SCH (09:00)
== END 2018-08-21 06:03 | disposition expired | DRG 174 ==
LOC: N.ED 15:17 → N.EDINP 16:19 → INTOOBSV 16:19 → N.TELEN 17:39 → N.CC 20:38
PROVIDERS: ADMIT Internal Medicine Cardiovascular Disease; ATTEND Internal Medicine Cardiovascular Disease
PROC: CLCCHCL (ICD-10-PCS; 2018-08-18 18:45)